=== PATIENT | female | born 1950 | race Caucasian/White ===

== ENCOUNTER → 2018-06-22 | Outpatient (CLI) | payer MEDICARE, OTHER ==
--- NOTE | 2018-06-22 18:21 | Diagnostic Imaging Report ---
EXAM: Thyroid Ultrasound INDICATION: ^THYROID NODULE COMPARISON: Thyroid ultrasound 07/30/2016 TECHNIQUE: Transverse and sagittal images were obtained of the thyroid gland. FINDINGS: Thyroid gland: Size: Right lobe: 4.7 x 1.2 x 1.4 cm, Normal in size Left lobe: 4.9 x 1.2 x 1.4 cm, Normal in size Isthmus: 0.3 cm, Normal in size Appearance: Homogeneous echotexture without increased vascularity Masses/Nodules: Right lobe: 0.8 x 0.4 x 0.6 cm solid (2 pts) nodule in the interpolar region with smooth margin (0 pts), omsrg-cznc-rhen (0 pts), isoechoic (1 pt), and no calcifications (0 pts). Stable. TR3a (<1.5 cm): No follow-up. Left lobe: 1.3 x 0.4 x 0.9 cm solid (2 pts) nodule in the interpolar region with smooth margin (0 pts), wghvy-seze-unia (0 pts), isoechoic (1 pt), and no calcifications (0 pts). Previously not visualized. TR3b (1.5-2.5 cm), Mildly Suspicious: Follow at 1, 3, 5 years Parathyroid: No focal parathyroid masses. Lymph nodes: No lymphadenopathy. Normal-appearing, normal-sized 1.9 x 0.2 x 0.7 cm right and 0.8 x 0.2 x 0.5 cm left cervical lymph nodes. IMPRESSION: 1. Mildly suspicious 1.3 cm isoechoic nodule in the left interpolar region, not previously visualized, for which follow-up is recommended in one year. TR3b (1.5-2.5 cm), Mildly Suspicious: Follow at 1, 3, 5 years. 2. A 0.8 cm solid isoechoic nodule in the right interpolar region requires no further follow-up per TIRADS. TI-RADS Lexicon: TR1, Benign: No FNA TR2, Not Suspicious: No FNA. TR3a (<1.5 cm): No follow-up. TR3b (1.5-2.5 cm), Mildly Suspicious: Follow at 1, 3, 5 years. TR3c (>2.5 cm), Mildly Suspicious: FNA. TR4a (<1.0 cm): No follow-up. TR4b (1.0-1.5 cm), Moderately Suspicious: Follow at 1, 2, 3, 5 years. TR4c (>1.5 cm), Moderately Suspicious: FNA. TR5a (<0.5 cm): No follow-up. TR5b (0.5-1.0 cm), Highly Suspicious: Follow at 1, 2, 3, 4, 5 years. TR5c (>1.0 cm), Highly Suspicious: FNA. *Rebiopsy if new suspicious features *No recommendation at this time for significant interval growth. Nodule Characteristics: * Benign features: cystic, hyperechoic, comet-tail artifact, complete halo * Minor suspicious features: solid, hypoechoic, other calcifications * Major suspicious features: microcalcifications, marked hypoechoic (less than strap muscle), suspicious lymph nodes, taller than wide, lobulated or ill-defined margins. Literature: ACR Thyroid Imaging, Reporting and Data System (TI-RADS): White Paper of the ACR TI-RADS Committee. J Am Ariadna Radiol 2017. Signed by: Dr. Yannick Foley M.D. on 06/22/2018 6:17 PM
== END ==
LOC: US 11:39
PROVIDERS: ATTEND Otolaryngology
DX: E04.1 Nontoxic single thyroid nodule (principal)
CPT/HCPCS: 76536

== ENCOUNTER → 2018-10-27 | Outpatient (CLI) | payer MEDICARE, OTHER ==
--- NOTE | 2018-10-27 16:37 | Diagnostic Imaging Report ---
EXAM: Thyroid Ultrasound INDICATION: ^THYROID NODULE COMPARISON: Thyroid ultrasound 06/22/2018 TECHNIQUE: Transverse and sagittal images were obtained of the thyroid gland. FINDINGS: Thyroid gland: Size: Right lobe: 3.8 x 1.3 x 1.5 cm, Normal in size Left lobe: 4.0 x 1.0 x 1.4 cm, Normal in size Isthmus: 0.3 cm, Normal in size Appearance: Homogeneous echotexture without increased vascularity Masses/Nodules: Right lobe: 0.7 x 0.4 x 0.6 cm solid (2 pts) nodule in the inferior pole with smooth margin (0 pts), fiawu-mpep-ufda (0 pts), hypoechoic (2 pts), and no calcifications (0 pts). Stable. TR4a (<1.0 cm): No follow-up. Left lobe: 0.9 x 0.7 x 0.4 cm solid (2 pts) nodule in the interpolar region with smooth margin (0 pts), fwwhb-kxmh-snhl (0 pts), hyperechoic (1 pt), and punctate echogenic foci (3 pts). Previously similar in appearance. TR4a (<1.0 cm): No follow-up. Parathyroid: No focal parathyroid masses. Lymph nodes: No lymphadenopathy. IMPRESSION: 1. 0.9 cm left thyroid solid nodule requires no further follow-up per TIRADS. 2. 0.7 cm right thyroid solid nodule requires no further follow-up per TIRADS. TI-RADS Lexicon: TR1, Benign: No FNA TR2, Not Suspicious: No FNA. TR3a (<1.5 cm): No follow-up. TR3b (1.5-2.5 cm), Mildly Suspicious: Follow at 1, 3, 5 years. TR3c (>2.5 cm), Mildly Suspicious: FNA. TR4a (<1.0 cm): No follow-up. TR4b (1.0-1.5 cm), Moderately Suspicious: Follow at 1, 2, 3, 5 years. TR4c (>1.5 cm), Moderately Suspicious: FNA. TR5a (<0.5 cm): No follow-up. TR5b (0.5-1.0 cm), Highly Suspicious: Follow at 1, 2, 3, 4, 5 years. TR5c (>1.0 cm), Highly Suspicious: FNA. *Rebiopsy if new suspicious features *No recommendation at this time for significant interval growth. Nodule Characteristics: * Benign features: cystic, hyperechoic, comet-tail artifact, complete halo * Minor suspicious features: solid, hypoechoic, other calcifications * Major suspicious features: microcalcifications, marked hypoechoic (less than strap muscle), suspicious lymph nodes, taller than wide, lobulated or ill-defined margins. Literature: ACR Thyroid Imaging, Reporting and Data System (TI-RADS): White Paper of the ACR TI-RADS Committee. J Am Ariadna Radiol 2017. Signed by: Irena Varma MD on 10/27/2018 4:34 PM
== END ==
LOC: US 12:13
PROVIDERS: ATTEND Otolaryngology
DX: E04.1 Nontoxic single thyroid nodule (principal)
CPT/HCPCS: 76536

== ENCOUNTER → 2020-01-03 | Outpatient (CLI) | payer MEDICARE, OTHER ==
--- NOTE | 2020-01-03 14:14 | Diagnostic Imaging Report ---
PROCEDURE: Ultrasound-guided thyroid FNA Procedural Personnel Attending physician(s): Irena Varma MD Fellow physician(s): None Resident physician(s): None Advanced practice provider(s): None Pre-procedure diagnosis: Left thyroid nodule Post-procedure diagnosis: Same Indication: Histopathologic diagnosis Previous biopsy of same target (QCDR): No Additional clinical history: None Complications: No immediate complications. IMPRESSION: Ultrasound-guided biopsy of left thyroid nodule. Plan: Specimen(s) sent for evaluation. PROCEDURE SUMMARY: - Percutaneous US-guided fine needle aspiration biopsy - Additional procedure(s): None PROCEDURE DETAILS: Pre-procedure Reference imaging for biopsy target: Multiple prior [facility] thyroid ultrasounds most recently 10/27/2018, outside ultrasound more recently Consent: Informed consent for the procedure including risks, benefits and alternatives was obtained and time-out was performed prior to the procedure. Preparation: The site was prepared and draped using maximal sterile barrier technique including cutaneous antisepsis. Anesthesia/sedation Level of anesthesia/sedation: No sedation Anesthesia/sedation administered by: Independent trained observer under attending supervision with continuous monitoring of the patient?s level of consciousness and physiologic status Total intra-service sedation time (minutes): NA Imaging prior to biopsy The patient was positioned supine. Initial ultrasound was performed. Biopsy target: - Maximal diameter (cm): 1.4 - Location: Left thyroid upper pole Other findings: None Biopsy Local anesthesia was administered. Under US guidance, the biopsy needle was advanced to the target and biopsy was performed. Coaxial needle: None Fine needle aspiration device: Chiba Fine needle size: 22 gauge Number of FNA specimens: 4 On-site biopsy touch preparation: Yes Additional sampling recommendations: None Preliminary assessment of sample adequacy: Adequate Needle removal The biopsy needle was removed and a sterile dressing was applied. Tract embolization: None Imaging following biopsy Immediate post-biopsy ultrasound was performed. Post-biopsy imaging findings: No hematoma Additional Details Additional description of procedure: None Equipment details: None Specimens removed: Biopsy samples as detailed above Estimated blood loss (mL): Less than 10 Standardized report: [id number] Attestation Signer name: Irena Varma MD I attest that I was present for the entire procedure. I reviewed the stored images and agree with the report as written. Signed by: Irena Varma MD on 01/03/2020 2:11 PM
== END ==
LOC: US 11:38
PROVIDERS: ATTEND Otolaryngology
DX: E04.2 Nontoxic multinodular goiter (principal)
CPT/HCPCS: 10005; 88172; 88173; 88305